=== PATIENT | male | born 1985 | race Caucasian/White ===

== ENCOUNTER 2016-06-21 10:09 | Emergency (ER) | payer OTHER, BC ==
[2016-06-21 10:26] VITALS: BP 120/91
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
--- NOTE | 2016-06-21 11:58 | CR ---
Left knee: AP, lateral and sunrise patellar views of the left knee were obtained. Comparison: No previous knee study. Bony densities noted off the lateral patella. These appear fairly well-corticated and are felt to be old. Diffuse soft tissue swelling is noted within the prepatellar bursa. Medial and lateral joint spaces appear within normal limits. No joint effusion is appreciated. Impression: 1. Diffuse soft tissue swelling in the area of the prepatellar bursa. 2. Well-corticated bony densities off the lateral patella which are felt to be old. 3. No additional abnormality is appreciated. Diagnostic code #2
== END 2016-06-21 11:56 | disposition home or self-care (01) ==
LOC: JD.ED 10:09
DX: S82.002A Unspecified fracture of left patella, initial encounter for closed fracture (principal); W19.XXXA Unspecified fall, initial encounter
CPT/HCPCS: 73562-26-LT; 73562-LT; 99283; 99284

== ENCOUNTER 2020-07-26 15:55 | Emergency (ER) | payer BC ==
[2020-07-26 16:08] VITALS: BP 135/88; PULSE 95
--- NOTE | 2020-07-26 16:36 | EDM.PDOC ---
ED HPI GENERAL MEDICAL PROBLEM - General Chief Complaint: General Stated Complaint: MULTIPLE DIFFERENT ISSUES OVER PAST WEEK Time Seen by Provider: 07/26/20 16:13 Source of Information: Reports: Patient, Family (), RN Notes Reviewed History Limitations: Reports: No Limitations - History of Present Illness INITIAL COMMENTS - FREE TEXT/NARRATIVE: Patient is a 35-year-old male who presents to the ER for the evaluation of a few different symptoms. Patient notes that last week, he had a headache or migraine for roughly 4 days straight, notes that the headaches seem to be all over his head, it seems to worsen when he coughed or sneezed. He did take some ibuprofen at times, this seemed to help a little bit. He has some generalized concerns, where he has had some right-sided facial twitching, there has been some facial numbness to his right jaw as well. He is complaining of some slurred speech or slowed speech. He states that he has some shortness of breath at times, and also some runny nose however this is not present at today's visit. He is not complaining of any swallowing difficulties, notes that his gait is not horribly off and that he is walking appropriately. She is concerned that he has had a 20 pound weight loss, that is unprovoked and this is not like him he is not made any sort of lifestyle changes that would account for the weight loss. 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 He is not been known to have any sort of headaches or migraines. Primary care provider is Zuhair Puri. He has had no fevers or chills, cough, nausea/vomiting/diarrhea. Patient states that he does not have a headache at today's visit. Right Leg Pain Score (Numeric/FACES): 6 - Related Data Allergies Allergy/AdvReac Type Severity Reaction Status Date / Time No Known Allergies Allergy Verified 07/26/20 16:24 Home Meds: Home Meds Ketorolac [Toradol] 10 mg PO ASDIRECTED PRN #10 tab 07/26/20 [Rx] Metoclopramide HCl 10 mg PO ASDIRECTED PRN #10 tablet 07/26/20 [Rx] Past Medical History Musculoskeletal History: Reports: Back Pain, Chronic, Fracture, Other (See Below) Other Musculoskeletal History: right foot, spinal stenosis Neurological History: Reports: Concussion Psychiatric History: Reports: Anxiety, Depression Social & Family History - Family History Family Medical History: No Pertinent Family History - Caffeine Use Caffeine Use: Reports: Coffee - Recreational Drug Use Recreational Drug Use: No ED ROS GENERAL - Review of Systems Review Of Systems: Comprehensive ROS is negative, except as noted in HPI. ED EXAM, GENERAL - Physical Exam Exam: See Below Exam Limited By: No Limitations General Appearance: Alert, WD/WN, No Apparent Distress Eye Exam: Bilateral Eye: EOMI, Normal Inspection, PERRL Respiratory/Chest: No Respiratory Distress, Lungs Clear, Normal Breath Sounds, No Accessory Muscle Use, Chest Non-Tender Cardiovascular: Normal Peripheral Pulses, Regular Rate, Rhythm, No Edema Peripheral Pulses: 2+: Radial (L), Radial (R) Extremities: Normal Inspection, Normal Capillary Refill Neurological: Alert, Oriented, Other (pt finger to nose is slightly off, the patient missed my finger to the right on 2 occasions. Pt does talk in a slow félix, I did not appreciate slurred speech however) Psychiatric: Flat Affect Skin Exam: Warm, Dry, Intact, Normal Color, No Rash Course - Vital Signs Last Recorded V/S: Last Vital Signs Temp 98.7 F 07/26/20 16:03 Pulse 95 07/26/20 16:03 Resp 18 07/26/20 16:03 BP 135/88 07/26/20 16:03 Pulse Ox 99 07/26/20 16:03 - Orders/Labs/Meds Orders: Active Orders 24 hr Category Date Time Status DRUG SCREEN, URINE [URCHEM] Stat Lab 07/26/20 16:36 Ordered Labs: Laboratory Tests 07/26/20 07/26/20 Range/Units 16:38 16:38 WBC 10.78 H (4.23-9.07) K/mm3 RBC 4.55 L (4.63-6.08) M/mm3 Hgb 12.7 L (13.7-17.5) gm/dl Hct 40.2 (40.1-51.0) % MCV 88.4 (79.0-92.2) fl MCH 27.9 (25.7-32.2) pg MCHC 31.6 L (32.2-35.5) g/dl RDW Std Deviation 42.7 (35.1-43.9) fL Plt Count 398 H (163-337) K/mm3 MPV 9.0 L (9.4-12.3) fl Neut % (Auto) 78.5 H (34.0-67.9) % Lymph % (Auto) 12.8 L (21.8-53.1) % [place] % (Auto) 7.6 (5.3-12.2) % Eos % (Auto) 0.6 L (0.8-7.0) Baso % (Auto) 0.2 (0.1-1.2) % Neut # (Auto) 8.47 H (1.78-5.38) K/mm3 Lymph # (Auto) 1.38 (1.32-3.57) K/mm3 [place] # (Auto) 0.82 (0.30-0.82) K/mm3 Eos # (Auto) 0.06 (0.04-0.54) K/mm3 Baso # (Auto) 0.02 (0.01-0.08) K/mm3 Manual Slide Review Sodium 140 (136-145) mEq/L Potassium 4.5 (3.5-5.1) mEq/L Chloride 102 (98-107) mEq/L Carbon Dioxide 28 (21-32) mEq/L Anion Gap 14.5 (5-15) BUN 18 (7-18) mg/dL Creatinine 1.2 (0.7-1.3) mg/dL Est Cr Clr Drug Dosing 87.03 mL/min Estimated GFR (MDRD) > 60 (>60) mL/min BUN/Creatinine Ratio 15.0 (14-18) Glucose 99 (70-99) mg/dL Calcium 8.7 (8.5-10.1) mg/dL Magnesium 1.8 (1.8-2.4) mg/dL Total Bilirubin 0.3 (0.2-1.0) mg/dL AST 20 (15-37) U/L ALT 32 (16-63) U/L Alkaline Phosphatase 57 (46-116) U/L Total Protein 7.8 (6.4-8.2) g/dl Albumin 3.5 (3.4-5.0) g/dl Globulin 4.3 gm/dL Albumin/Globulin Ratio 0.8 L (1-2) TSH 3rd Generation 1.733 (0.358-3.74) uIU/mL - Re-Assessments/Exams Free Text/Narrative Re-Assessment/Exam: 07/26/20 16:36 Patient presents to the ER for the evaluation of his multiple complaints. Due to some neurological abnormalities on physical exam, head CT without contrast will be performed to rule out structural abnormalities and or bleeds. We will also get some basic labs along with a thyroid level for further evaluation. 07/26/20 17:[address] has been performed, and is within normal limits, radiology does suggest of the patient's systems seem to persist, MRI could be investigated for further evaluation. Laboratory evaluation is unremarkable, thyroid levels within normal limits. I did go over the findings with the patient, I still do not have a great answer as to what is causing his unprovoked weight loss, but there are no major medical issues made apparent at today's visit. He states that he will follow up with his primary care provider for ongoing management. Departure - Departure Time of Disposition: 17:53 Disposition: Home, Self-Care 01 Condition: Good Clinical Impression: Frequent headaches - Discharge Information *PRESCRIPTION DRUG MONITORING PROGRAM REVIEWED*: No *COPY OF PRESCRIPTION DRUG MONITORING REPORT IN PATIENT COREY: No Instructions: General Headache Without Cause, [id number] Referrals: Zuhair Barnhart MD [Primary Care Provider] - Forms: ED Department Discharge Additional Instructions: You were evaluated in the ER today for your headache, and other generalized complaints. Laboratory evaluation and CT done at today's visit demonstrate no focal abnormalities. Unfortunately we do not have a good answer as to what is causing your weight loss. Recommend you follow-up with your regular care provider, as soon as possible, so that they can do further work-up as warranted. In the meantime you have been given 2 prescriptions one for Toradol, and 1 for Reglan, these would be to take at the onset of a headache, to see if this helps suspected headache/migraine aura that you might be having. This medication was electronically sent to [facility] in the [facility]. Please do not hesitate to return to the ER at any time if symptoms change or worsen. Sepsis Event Note (ED) - Evaluation Sepsis Screening Result: No Definite Risk - Focused Exam Vital Signs: Vital Signs Temp Pulse Resp BP Pulse Ox 07/26/20 16:03 98.7 F 95 18 135/88 99 - My Orders Last 24 Hours: My Active Orders 07/26/20 16:36 DRUG SCREEN, URINE [URCHEM] Stat - Assessment/Plan Last 24 Hours: My Active Orders 07/26/20 16:36 DRUG SCREEN, URINE [URCHEM] Stat
--- NOTE | 2020-07-26 17:06 | CT ---
Head CT Technique: Multiple axial sections through the brain were obtained. Intravenous contrast was not utilized. Reconstructed coronal and sagittal images were obtained. Comparison: No prior intracranial imaging is available. Findings: Ventricles along with basal cisterns and sulci over the convexities are within normal limits for the patient's age. No abnormal parenchymal densities are seen. No evidence of intracranial hemorrhage is seen. No midline shift or mass-effect is seen. Bone window settings were reviewed. Visualized mastoid and paranasal sinuses show nothing acute. No acute calvarial abnormality is appreciated. Impression: 1. Nothing acute is seen on noncontrast head CT study. 2. If patient has continued symptoms, recommend MRI to further evaluate. Diagnostic code #1
== END 2020-07-26 18:10 | disposition home or self-care (01) ==
LOC: JD.ED 15:55
DX: R51.9 Headache, unspecified (principal)
CPT/HCPCS: 36415; 70450; 70450-26; 80053; 83735; 84443; 85025; 99283; 99284-25

== ENCOUNTER 2020-08-04 21:22 | Emergency (ER) | payer BC ==
[2020-08-04 22:02] VITALS: BP 130/84; PULSE 68
--- NOTE | 2020-08-04 22:19 | EDM.PDOC ---
ED HPI GENERAL MEDICAL PROBLEM - General Chief Complaint: Lower Extremity Injury/Pain Stated Complaint: LEG AND ANKLE PAIN Time Seen by Provider: 08/04/20 21:58 Source of Information: Reports: Patient History Limitations: Reports: No Limitations - History of Present Illness INITIAL COMMENTS - FREE TEXT/NARRATIVE: Mr. Becerril is a very pleasant 35-year-old gentleman who now presents to the ED stating that he has been experiencing right calf pain with ambulation for 1 week, since 07/28/2020. No calf pain at rest. He then noticed that his right ankle appears to be swollen, when compared to the left, as he was getting ready for bed tonight. No ankle pain. No right lower extremity injury, and no prior similar symptoms. The patient denies recent history of chest pain, palpitations, or dyspnea. The patient denies taking any [id number] or home remedies over the past week. Here in the ED, the patient is found to be hemodynamically stable, afebrile, saturating 98% on room air. He appears to be comfortable while semirecumbent on the gurney, in no acute distress. Prior to last week, the patient denies having a recent fever, chills, sore throat, ear pain, nasal or sinus congestion, cough, dyspnea, chest pain, palpitations, nausea, vomiting, constipation, diarrhea, abdominal pain, urinary symptoms, recent weight gain or weight loss, recent bloody bowel movements or black bowel movements, recent joint aches, headaches, or rashes. The patient's PCP is Dr. Zuhair Barnhart. Right Lower Leg Pain Score (Numeric/FACES): 7 - Related Data Allergies Allergy/AdvReac Type Severity Reaction Status Date / Time No Known Allergies Allergy Verified 07/26/20 16:24 Home Meds: Home Meds Ketorolac [Toradol] 10 mg PO ASDIRECTED PRN #10 tab 07/26/20 [Rx] Metoclopramide HCl 10 mg PO ASDIRECTED PRN #10 tablet 07/26/20 [Rx] Past Medical History Musculoskeletal History: Reports: Fracture Psychiatric History: Reports: Anxiety (untreated), Depression (untreated) Social & Family History - Tobacco Use Tobacco Use Within Last Twelve Months: Smokeless Tobacco (Chews 1 can/week) - Caffeine Use Caffeine Use: Reports: Coffee, Energy Drinks, Soda - Alcohol Use Alcohol Use History: Yes Alcohol Use Frequency: Socially - Recreational Drug Use Recreational Drug Use: No - Living Situation & Occupation Living situation: Reports: Single, with Significant Other (Girlfriend), with Family (3 kids) 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 ED EXAM, GENERAL - Physical Exam Exam: See Below Exam Limited By: No Limitations General Appearance: Alert, WD/WN, No Apparent Distress Eye Exam: Bilateral Eye: EOMI, Normal Inspection Ears: Normal External Exam, Hearing Grossly Normal Nose: Normal Inspection Throat/Mouth: Normal Inspection, Normal Lips, Normal Voice, No Airway Compromise Head: Atraumatic, Normocephalic Neck: Normal Inspection, Full Range of Motion Respiratory/Chest: No Respiratory Distress, Lungs Clear, Normal Breath Sounds, No Accessory Muscle Use Cardiovascular: Normal Peripheral Pulses, Regular Rate, Rhythm, No Gallop, No JVD, No Murmur, No Rub Peripheral Pulses: 3+: Radial (L), Radial (R) GI/Abdominal: Normal Bowel Sounds, Soft, Non-Tender, No Organomegaly, No Distention, No Abnormal Bruit, No Mass Back Exam: Normal Inspection, Full Range of Motion, NT Extremities: Normal Range of Motion, Normal Capillary Refill, Other (Right mid calf-calf circumference 37.5 cm, left mid-calf circumference 33.5 cm. 1-2+ edema of the right ankle, when compared to the left. Tenderness to palpation of the right mid-calf muscle. Neurovascular status of the right lower extremity is intact.) Neurological: Alert, Oriented, Normal Cognition, No Motor/Sensory Deficits Psychiatric: Normal Affect Skin Exam: Warm, Dry, Intact, Normal Color, No Rash Course - Vital Signs Last Recorded V/S: Last Vital Signs Temp 36.4 C 08/04/20 22:00 Pulse 68 08/04/20 22:00 Resp 18 08/04/20 22:00 BP 130/84 08/04/20 22:00 Pulse Ox 98 08/04/20 22:00 - Orders/Labs/Meds Orders: Active Orders 24 hr Category Date Time Status VL Duplex Lwr Ext Veins Ltd Rt [US] Stat Exams 08/04/20 22:05 Taken Labs: Laboratory Tests 08/04/20 08/04/2021 Range/Units 22:13 22:13 22:13 WBC 7.25 (4.23-9.07) K/mm3 RBC 4.47 L (4.63-6.08) M/mm3 Hgb 12.6 L (13.7-17.5) gm/dl Hct 39.4 L (40.1-51.0) % MCV 88.1 (79.0-92.2) fl MCH 28.2 (25.7-32.2) pg MCHC 32.0 L (32.2-35.5) g/dl RDW Std Deviation 42.7 (35.1-43.9) fL Plt Count 331 (163-337) K/mm3 MPV 9.4 (9.4-12.3) fl Neutrophils % (Manual) 67 H (40-60) % Band Neutrophils % 0 (0-10) % Lymphocytes % (Manual) 28 (20-40) % Atypical Lymphs % 0 % Monocytes % (Manual) 5 (2-10) % Eosinophils % (Manual) 0 L (0.8-7.0) % Basophils % (Manual) 0 L (0.2-1.2) Platelet Estimate Adequate RBC Morph Comment Normal PT 11.7 (9.7-12.0) SECONDS INR 1.10 APTT 28.3 (21.7-31.4) SECONDS Sodium 142 (136-145) mEq/L Potassium 3.4 L (3.5-5.1) mEq/L Chloride 104 (98-107) mEq/L Carbon Dioxide 26 (21-32) mEq/L Anion Gap 15.4 H (5-15) BUN 15 (7-18) mg/dL Creatinine 1.1 (0.7-1.3) mg/dL Est Cr Clr Drug Dosing 94.94 mL/min Estimated GFR (MDRD) > 60 (>60) mL/min BUN/Creatinine Ratio 13.6 L (14-18) Glucose 92 (70-99) mg/dL Calcium 8.5 (8.5-10.1) mg/dL Magnesium 1.7 L (1.8-2.4) mg/dL Total Bilirubin 0.4 (0.2-1.0) mg/dL AST 21 (15-37) U/L ALT 27 (16-63) U/L Alkaline Phosphatase 57 (46-116) U/L Creatine Kinase 201 (39-308) U/L Total Protein 7.7 (6.4-8.2) g/dl Albumin 3.5 (3.4-5.0) g/dl Globulin 4.2 gm/dL Albumin/Globulin Ratio 0.8 L (1-2) - Re-Assessments/Exams Free Text/Narrative Re-Assessment/Exam: 08/04/20 22:14 As above, the patient has had right calf pain with ambulation for the past week, and then noticed painless right ankle swelling tonight, as he was getting ready to go to bed. No injury to his right lower extremity, and no prior similar symptoms. On examination, the patient's right mid-calf circumference measures 37.5 cm, while his left mid calf circumference measures 33.5 cm, and there is visible swelling to his right ankle, compared to the left. I think there is a very good chance that the patient has a right leg DVT, therefore have ordered a work-up that includes several blood tests, and a Doppler ultrasound of the right lower extremity. 08/04/20 23:02 The patient's CBC is remarkable for an H/H slightly depressed at 12.6/39.4, with the remainder of his CBC being unremarkable. His CMP is remarkable for slight hypokalemia of 3.4, and an anion gap slightly elevated at 15.4, but with a bicarbonate normal at 26, and the remainder of his CMP being unremarkable. His magnesium level is slightly depressed at 1.7. His CPK is within normal limits at 201. His coags are within normal limits. Doppler ultrasound of the right lower extremity is read by [facility] as "No evidence of deep venous thrombosis in the right lower extremity." 08/04/20 23:08 Test results discussed with the patient. At this time, it appears that the patient is suffering from venous insufficiency, therefore I am recommending that he purchase knee-high TEDS hose, and apply it each morning, removing it at bedtime. He should also elevate his right lower extremity is much as possible when he is not walking around. In order to make a definitive diagnosis as to the cause, he will need to follow-up with Dr. Barnhart for further evaluation. Departure - Departure Time of Disposition: 23:09 Disposition: Home, Self-Care 01 Condition: Good Clinical Impression: Edema of right lower extremity - Discharge Information *PRESCRIPTION DRUG MONITORING PROGRAM REVIEWED*: Not Applicable *COPY OF PRESCRIPTION DRUG MONITORING REPORT IN PATIENT COREY: Not Applicable Referrals: Zuhair Barnhart MD [Primary Care Provider] - Forms: ED Department Discharge Additional Instructions: You were seen in the emergency room for right calf pain with ambulation for the past week, then noticing a right ankle swelling tonight. Work-up in the ER included several blood tests and a Doppler ultrasound of your right lower extremity. Your entire work-up was unremarkable. You do not have a DVT. Your right lower extremity edema is most likely due to venous insufficiency, although other etiologies are possible. We recommend that you purchase [id number] knee-high TEDS hose. Apply the stocking each morning, and remove it at bedtime. We also recommend that you elevate your right lower extremity is much as possible when not ambulating. For further evaluation as to the possible underlying cause of your right lower extremity edema, please follow-up with your PCP, Dr. Zuhair Barnhart. If any other problems, please do not hesitate to return to the ER. Sepsis Event Note (ED) - Evaluation Sepsis Screening Result: No Definite Risk - Focused Exam Vital Signs: Vital Signs Temp Pulse Resp BP Pulse Ox 08/04/20 22:00 36.4 C 68 18 130/84 98 - My Orders Last 24 Hours: My Active Orders 08/04/20 22:05 VL Duplex Lwr Ext Veins Ltd Rt [US] Stat - Assessment/Plan Last 24 Hours: My Active Orders 08/04/20 22:05 VL Duplex Lwr Ext Veins Ltd Rt [US] Stat
--- NOTE | 2020-08-05 07:00 | US ---
Right lower extremity deep venous ultrasound: Duplex and color Doppler evaluation was obtained of the right common femoral, proximal greater saphenous, superficial femoral, popliteal, posterior tibial and peroneal veins. Left common femoral vein was also evaluated. Comparison: No prior venous imaging is available. Findings: Normal phasic flow, augmentation and compression was seen within the visualized veins. Impression: 1. No findings of deep venous thrombosis is seen within the right lower extremity or within the left common femoral vein. Diagnostic code #1 I agree with preliminary report from [facility], finalized on 08/05/20, 12:01 AM CDT, code 1
== END 2020-08-04 23:37 | disposition home or self-care (01) ==
LOC: JD.ED 21:22
DX: R60.0 Localized edema (principal)
CPT/HCPCS: 36415; 80053; 82550; 83735; 85007; 85027; 85610; 85730; 93971-26-RT; 93971-RT; 99283; 99284-25

== ENCOUNTER 2022-02-12 21:17 | Emergency (ER) | payer BC ==
[2022-02-12 21:53] VITALS: BP 144/79; PULSE 85
== END 2022-02-13 01:52 | disposition home or self-care (01) ==
LOC: JD.ED 21:17
DX: M79.662 Pain in left lower leg (principal); M79.89 Other specified soft tissue disorders; Z72.0 Tobacco use
CPT/HCPCS: 36415; 73590-26-LT; 73590-LT; 73610-26-LT; 73610-LT; 76881-26-LT; 76881-LT; 80053; 85025; 85610; 85730; 93971-26-LT; 93971-LT; 99284

== ENCOUNTER 2023-07-22 03:34 | Emergency (ER) | payer BC, OTHER ==
[2023-07-22 03:47] VITALS: BP 128/86; PULSE 63
== END 2023-07-22 04:31 | disposition home or self-care (01) ==
LOC: JD.ED 03:34
DX: S60.221A Contusion of right hand, initial encounter (principal); W22.8XXA Striking against or struck by other objects, initial encounter; Y93.89 Activity, other specified
CPT/HCPCS: 73130-26-RT; 73130-RT; 99282; 99283